=== PATIENT | male | born 1990 | race Caucasian/White ===

== ENCOUNTER 2022-02-03 12:29 | Inpatient (IN) | payer OTHER ==
[~2022-02-03] VITALS: Ht 188 cm; Wt 146.1 kg
--- NOTE | 2022-02-03 12:35 | NUR ---
[id number] HOME, ANXIOUS C/O CHEST PALPITATION SINCE MORNING. ADMITS TO [facility] LAST NIGHT. PLACED COMFORTABLY ON BED 12. VITALS CHECKED.
[2022-02-03] MEDS ORDERED: IV NS 0.9% 500 ML BAG IV ONE (13:00)
--- NOTE | 2022-02-03 13:12 | NUR ---
COVID SWAB DONE AND SENT TO LAB
--- NOTE | 2022-02-03 13:15 | NUR ---
IV CANNULA INSERTED ON RIGHT AC USING G20 NEEDLE. BLOOD DRAWN AND GIVEN TO CLERICAL SECRETARY. O.9NS 500CC STARTED
[2022-02-03 13:19] LABS: BASOPHILS % (AUTO) 0.5 % (0.0-2.0); HEMATOCRIT 47 % (39-51); HEMOGLOBIN 16.2 g/dL (13.5-17.5); LYMPHOCYTES # (AUTO) 2.4 K/uL (0.8-4.8); LYMPHOCYTES % (AUTO) 23.6 % (20.0-44.0); MEAN CORPUSCULAR HGB CONC 35 g/dl (31.0-36.0); MEAN CORPUSCULAR VOLUME 87 fL (80-96); MONOCYTES # (AUTO) 1.1 K/uL (0.1-1.30); MONOCYTES % (AUTO) 11.1 % (2.0-12.0); NEUTROPHILS # (AUTO) 6.4 K/uL (1.8-8.9); NEUTROPHILS % (AUTO) 63.8 % (43.0-81.0); PLATELET COUNT (AUTO) 421 K/uL (150-450); RED BLOOD CELL COUNT(AUTO) 5.42 MIL/uL (4.5-6.0)
--- NOTE | 2022-02-03 13:30 | NUR ---
CXR DONE AT BEDSIDE
[2022-02-03 13:31] LABS: CARBON DIOXIDE 24 mmol/L (21-32); CHLORIDE 99 mmol/L (98-107); CREATININE 0.9 mg/dL (0.6-1.3); GLUCOSE 101 mg/dL (74-106); POTASSIUM 3.7 mmol/L (3.5-5.1); SODIUM SERUM 134 mmol/L (136-145); UREA NITROGEN, BLOOD 15 mg/dL (7-18)
[2022-02-03 13:58] LABS: ALANINE AMINOTRANSFERASE 31 U/L (12-78); ALBUMIN 4.2 g/dL (3.4-5.0); ALKALINE PHOSPHATASE 88 U/L (46-116); ASPARTATE AMINOTRANSFERASE 19 U/L (15-37); BILIRUBIN,DIRECT 0.3 mg/dL (0.0-0.2); BILIRUBIN,TOTAL 1.4 mg/dL (0.2-1.0)
--- NOTE | 2022-02-03 14:40 | NUR ---
SEEN BY DR REAGAN
--- NOTE | 2022-02-03 15:10 | NUR ---
2DECHO DONE AT BEDSIDE
--- NOTE | 2022-02-03 15:28 | NUR ---
GOING TO TELE 101
[2022-02-03] MEDS ORDERED: Z GUARD REMEDY 4 OZ OINT TP PRN (15:30)
[2022-02-03] MEDS ORDERED: MAG HYDROX/AL HYDROX/SIMETH 30 ML UDC PO PRN (15:30)
[2022-02-03] MEDS ORDERED: MORPHINE SULFATE INJ 2 MG/ML DISP.SYRIN IV PRN (15:30)
[2022-02-03] MEDS ORDERED: HYDROCODONE/APAP 5/325MG TABLET PO PRN (15:30)
[2022-02-03] MEDS ORDERED: MAGNESIUM HYDROXIDE 30 ML UDC PO PRN (15:30)
[2022-02-03] MEDS ORDERED: ACETAMINOPHEN 325 MG TABLET PO PRN (15:30)
[2022-02-03] MEDS ORDERED: ONDANSETRON HCL/PF 4 MG/2 ML VIAL IVP PRN (15:30)
[2022-02-03] MEDS ORDERED: NITROGLYCERIN 0.4 MG/TAB BOTTLE SL PRN (15:30)
--- NOTE | 2022-02-03 15:49 | NUR ---
ROOM 120-1
--- NOTE | 2022-02-03 15:53 | NUR ---
REPORT GIVEN TO NURSE LEE FOR ROMAN
--- NOTE | 2022-02-03 16:16 | NUR ---
ULTRASOUND AT BEDSIDE
--- NOTE | 2022-02-03 16:45 | NUR ---
THE PATIENT IS TAKEN TO ROOM 120-1 IN STABLE CONDITION AND PER ACLS POLICY.
--- NOTE | 2022-02-03 17:00 | NUR ---
INSULATION ESTIMATOR NOTES RECEIVED PATIENT FROM ED. PATIENT IS AMBULATORY AND ABLE TO MAKE NEEDS KNOWN. A/O X4 COMPLAINS OF FLUCTUATING PAIN OF THE HEART. PATIENT NOT ABLE TO GIVE NUMERICAL VALUE FOR SEVERITY OF PAIN. PATIENT STILL NPO UNTIL ATTENDING DOCTOR SEES ULTRASOUND OF ABD. PATIENT ADMISSION VITALS ARE 98.0, 84HR, 20RR, 96% O2 AND 156/74BP. SAFETY MEASURES IN PLACE. BED IN LOWEST POSITION AND LOCKED. TWO SIDE RAILS ARE UP. CALL LIGHT WITHIN REACH. WILL CONTINUE TO MONITOR
[2022-02-03] MEDS: METOPROLOL TARTRATE 50 MG TABLET PO SCH (17:49)
--- NOTE | 2022-02-03 19:35 | NUR ---
RN OPENING NOTES RECEIVED PATIENT IN BED ALERT, AWAKE, ORIENTED X4 AND VERBALLY RESPONSIVE. ABLE TO MAKE HIS NEEDS. ON ROOM AIR AND PT TOLERATED WELL. IV ACCESS ON RAC#20G INTACT AND PATENT. NO S/S O0F INFILTRATIONS. NO C/O PAIN OR DISCOMFORT. NO ACUTE DISTRESS. PT IS ON NOW 2GM, NA DIET. AMBULATORY, ABLE TO GO TO THE BATHROOM. ALL SAFETY MEASURES IN PLACE. BED IN LOWEST POSITION AND LOCKED. SIDE RAILS ARE UP X2. PLACE CALL LIGHT WITHIN REACH. WILL CONTINUE TO MONITOR
--- NOTE | 2022-02-03 19:35 | NUR ---
RN NOTES RECEIVED PATIENT IN BED ALERT, AWAKE, ORIENTED X4 AND VERBALLY RESPONSIVE. ABLE TO MAKE HIS NEEDS. ON ROOM AIR AND PT TOLERATED WEL.. FROM ED. PATIENT IS AMBULATORY AND ABLE TO MAKE NEEDS KNOWN. A/O X4 COMPLAINS OF FLUCTUATING PAIN OF THE HEART. PATIENT NOT ABLE TO GIVE NUMERICAL VALUE FOR SEVERITY OF PAIN. PATIENT STILL NPO UNTIL ATTENDING DOCTOR SEES ULTRASOUND OF ABD. PATIENT ADMISSION VITALS ARE 98.0, 84HR, 20RR, 96% O2 AND 156/74BP. SAFETY MEASURES IN PLACE. BED IN LOWEST POSITION AND LOCKED. TWO SIDE RAILS ARE UP. CALL LIGHT WITHIN REACH. WILL CONTINUE TO MONITOR Addendum: 02/03/22 at 2111 by XOCHILT GARCIA RN WRONG CHART
[2022-02-03 20:00] VITALS: BP 129/76
[2022-02-04] VITALS: BP 121/70
--- NOTE | 2022-02-04 01:00 | NUR ---
RN NOTES: HOLD LOPRESSOR AT 12 MIDNIGHT. BLOOD PRESSURE-121/70, PULSE-48
[2022-02-04 04:00] VITALS: BP 109/77
--- NOTE | 2022-02-04 04:59 | NUR ---
RN NOTES: PT C/O MODERATE PAIN AROUND THE CHEST AREA, 6/7 PAIN SCALE. NITROSTAT SL 0.4 MG/TAB GIVEN. PT TOLERATED WELL.
--- NOTE | 2022-02-04 05:00 | NUR ---
RN NOTES: AFTER GIVEN NITROSTAT. VITAL SIGN TAKEN. BP-120/57, PULSE-48. PT STATED, CHEST PAIN WAS RELIEVED. WILL CONTINUE TO MONITOR
[2022-02-04] MEDS: METOPROLOL TARTRATE 50 MG TABLET PO SCH ×3 (06:00→12:00)
--- NOTE | 2022-02-04 06:45 | NUR ---
RN CLOSING NOTES PATIENT IN BED ALERT, AWAKE, ORIENTED X4 AND VERBALLY RESPONSIVE. ABLE TO MAKE HIS NEEDS. ON 3L/MIN VIA N/C, O2 SAT 96% AND PT TOLERATED WELL. IV ACCESS ON RAC#20G INTACT AND PATENT. NO S/S 0F INFILTRATIONS. NO C/O PAIN OR DISCOMFORT. NO ACUTE DISTRESS. AMBULATORY, ABLE TO GO TO THE BATHROOM. LOPRESSOR ON HOLD DUE TO BP- 120/57, PULSE- 48. ALL SAFETY MEASURES IN PLACE. BED IN LOWEST POSITION AND LOCKED. SIDE RAILS ARE UP X2. PLACE CALL LIGHT WITHIN REACH. WILL ENDORSE TO MORNING SHIFT NURSE.
[2022-02-04] MEDS ORDERED: PANTOPRAZOLE 40 MG TABLET.DR PO SCH (07:30)
--- NOTE | 2022-02-04 07:30 | NUR ---
[employer] TEACHER NOTES PT IN BED, AWAKE, ALERT AND ORIENTED, NO COMPLAINT OF CHEST PAIN AT THIS TIME, RESPIRATIONS NORMAL, CALL LIGHT WITHIN REACH, NEEDS ATTENDED.
[2022-02-04 08:00] VITALS: BP 132/77
[2022-02-04 08:33] LABS: CALCIUM, SERUM 8.9 mg/dL (8.5-10.1); CREATININE 0.9 mg/dL (0.6-1.3); MAGNESIUM 2.4 mg/dL (1.8-2.4)
[2022-02-04] MEDS ORDERED: ATORVASTATIN 10 MG TABLET PO SCH (09:00)
[2022-02-04] MEDS ORDERED: ASPIRIN 81 MG TAB.CHEW PO SCH (09:00)
[2022-02-04 09:47] LABS: BASOPHILS % (AUTO) 0.6 % (0.0-2.0); EOSINOPHILS % (AUTO) 2.3 % (0.0-6.0); HEMATOCRIT 47 % (39-51); HEMOGLOBIN 15.6 g/dL (13.5-17.5); LYMPHOCYTES % (AUTO) 28.6 % (20.0-44.0); MEAN CORPUSCULAR HGB CONC 34 g/dl (31.0-36.0); MEAN CORPUSCULAR VOLUME 89 fL (80-96); MONOCYTES # (AUTO) 0.7 K/uL (0.1-1.30); MONOCYTES % (AUTO) 9.5 % (2.0-12.0); PLATELET COUNT (AUTO) 348 K/uL (150-450); RED BLOOD CELL COUNT(AUTO) 5.24 MIL/uL (4.5-6.0); WHITE BLOOD COUNT (AUTO) 6.9 K/uL (4.3-11.0)
[2022-02-04 12:00] VITALS: BP 118/58
[2022-02-04] MEDS ORDERED: IOHEXOL-350 100 ML VIAL IV ONE ×2 (13:06→13:11)
[2022-02-04] MEDS ORDERED: IV NS 0.9% 250 ML IV ONE (13:07)
[2022-02-04] MEDS ORDERED: METOPROLOL TARTRATE INJ 5 MG/5 ML AMPUL ONE (13:12)
--- NOTE | 2022-02-04 13:25 | NUR ---
SOLAR ENERGY SYSTEM INSTALLER NOTES PT PICKED UP FOR [facility] VIA WHEELCHAIR, IN STABLE CONDITION.
--- NOTE | 2022-02-04 13:53 | NUR ---
RN NOTES PATIENT CTA PROCEDURE FINISHED AT THIS TIME, PATIENT STABLE, DURING PROCEDURE ADMINISTERED METOPROLOL, 5MG/ML IV PUSH, AND NITROGLYCERINE 0.4 MG SL ONE TAB. PATIENT REFUSED PAIN, ON WAS C/O HEADACHE, EDUCATION ADMINISTERED, BP 112/61, P-58, O2-98RA. TRANSPORTED PATIENT BACK TO THE [facility] TELE UNIT, STABLE CONDITION VIA WHEELCHAIR WITH THE TRANSPORTED HARPER.
--- NOTE | 2022-02-04 16:05 | NUR ---
RECORDS ASSISTANT NOTES PT IN BED, AWAKE, ALERT AND ORIENTED, NO FURTHER COMPLAINT OF CHEST PAIN, PT SEEN BY DR. HOLLIDAY AND DR. NAIR, PT HAD CTCA, RESULTS RELAYED TO DR. NAIR AND CLEARED PT FOR DISCHARGE, DISCHARGE ORDER GIVEN BY DR. HOLLIDAY, DISCHARGE INSTRUCTIONS PROVIDED TO PT, VEBALIZED UNDERSTANDING, ASSISTED P TO HOSPITAL LOBBY, PT ARRANGED FOR HIS OWN TRANSPORTATION.
== END 2022-02-04 16:00 | disposition home or self-care (01) | DRG 207 ==
LOC: ER 12:34 → TRANSITION 15:11 → TELE-TD 15:31 → TELE1 15:57
DX: R00.2 Palpitations (principal); E66.01 Morbid (severe) obesity due to excess calories; E80.6 Other disorders of bilirubin metabolism; F41.9 Anxiety disorder, unspecified; R07.9 Chest pain, unspecified; J45.909 Unspecified asthma, uncomplicated; I10 Essential (primary) hypertension; E86.0 Dehydration; G47.33 Obstructive sleep apnea (adult) (pediatric); Z68.41 Body mass index [BMI] 40.0-44.9, adult; Z20.822 Contact with and (suspected) exposure to COVID-19
CPT/HCPCS: 36415; 71045-TC; 75574; 76700-TC; 80048-TC; 80076-TC; 83690-TC; 83735-TC; 84100-TC; 84484-TC; 85025-TC; 87081-TC; 93307-TC; G0378; J3490; J7050; Q9967

== ENCOUNTER 2022-04-08 22:58 | Emergency (ER) | payer OTHER ==
[~2022-04-08] VITALS: Ht 190.5 cm; Wt 136.1 kg
[2022-04-08 23:43] VITALS: BP 138/86
--- NOTE | 2022-04-09 00:20 | NUR ---
Patient eloped from facility. ER MD notified.
== END 2022-04-09 00:21 | disposition left against medical advice (07) ==
LOC: ER 23:10
DX: U07.1 COVID-19 (principal); R09.81 Nasal congestion; J45.909 Unspecified asthma, uncomplicated